=== PATIENT | female | born 1940 | race Caucasian/White ===

== ENCOUNTER 2018-05-26 15:32 | Emergency (ER) | payer MEDICARE, MEDICAID ==
[~2018-05-26] VITALS: Ht 162.6 cm; Wt 65.0 kg
[2018-05-26] MEDS ORDERED: ondansetron/PF 4mg/2ml inj IV ONE (15:40)
[2018-05-26] MEDS ORDERED: normal saline 1000ML IV soln IV ONE (15:40)
[2018-05-26 16:13] LABS: BASOPHILS % (AUTO) 0.1 % (0-1); EOSINOPHILS # (AUTO) 0.1 X10'3 (0-0.9); EOSINOPHILS % (AUTO) 1.4 % (0-6); HEMATOCRIT 45.1 % (35.0-45.0); HEMOGLOBIN 14.7 g/dl (12.0-16.0); LYMPHOCYTES # (AUTO) 1.8 X10'3 (1.1-4.8); LYMPHOCYTES % (AUTO) 26.3 % (21-51); MEAN CORPUSCULAR HEMOGLOBIN 28.9 PG (27.0-31.0); MEAN CORPUSCULAR HGB CONC 32.7 % (33.0-36.5); MEAN CORPUSCULAR VOLUME 88.3 FL (78-98); MEAN PLATELET VOLUME 7.9 FL (7.4-10.4); MONOCYTES # (AUTO) 0.6 X10'3 (0-0.9); MONOCYTES % (AUTO) 8.7 % (2-12); NEUTROPHILS # (AUTO) 4.3 X10'3 (1.8-7.7); NEUTROPHILS % (AUTO) 63.5 % (42-75); PLATELET COUNT 251 X10'3 (140-440); RED CELL DISTRIBUTION WIDTH 13.9 % (11.5-14.5); WHITE BLOOD COUNT 6.8 X10'3 (4.5-11.0)
[2018-05-26 16:23] LABS: ALANINE AMINOTRANSFERASE 28 U/L (12-78); ALBUMIN 4.3 G/DL (3.4-5.0); ALKALINE PHOSPHATASE 80 IU/L (46-116); ANION GAP 13 (8-16); ASPARTATE AMINO TRANSFERASE 19 U/L (10-37); BILIRUBIN,TOTAL 0.8 MG/DL (0.1-1.0); BLOOD UREA NITROGEN 19 MG/DL (7-18); BUN/CREATININE RATIO 15.8 (6.6-38.0); CALCIUM 9.3 MG/DL (8.5-10.1); CHLORIDE 103 MMOL/L (99-107); GLUCOSE 128 MG/DL (70-104); POTASSIUM 3.4 MMOL/L (3.5-5.1); SODIUM 139 MMOL/L (135-145); TOTAL PROTEIN 8.4 G/DL (6.4-8.2); eGFR 44 ML/MIN
[2018-05-26 16:27] LABS: CLARITY,URINE CLOUDY (Clear); COLOR,URINE YELLOW (Yellow); GLUCOSE, URINE NEGATIVE (Neg); KETONES,URINE NEGATIVE (Neg); LEUKOCYTE ESTERASE ,URINE NEGATIVE (Neg); NITRITES, URINE NEGATIVE (Neg); OCCULT BLOOD,URINE SMALL (Neg); PROTEIN,URINE >=300 mg/dl (Neg); UA COLLECTION TYPE CLN CATCH MIDSTREAM
[2018-05-26 16:36] LABS: BACTERIA,URINE 1+ /HPF (Neg); SQUAMOUS EPITHELIAL CELL,UR FEW /LPF (FEW)
[2018-05-26] MEDS ORDERED: SULF1TAB49 PO (16:41)
[2018-05-26] MEDS ORDERED: ONDA4TAB6 PO (16:41)
[2018-05-26 17:25] VITALS: BP 130/65
== END 2018-05-26 17:28 | disposition home or self-care (01) ==
LOC: ER 15:33
DX: N39.0 Urinary tract infection, site not specified (principal); E86.0 Dehydration; E87.6 Hypokalemia; R11.2 Nausea with vomiting, unspecified; Z79.899 Other long term (current) drug therapy
CPT/HCPCS: 36415; 71045; 80053; 81001; 83605; 85025; 87040; 87088; 87502; 87503; 93005; 96361; 96374; 99284; J2405; J7030

== ENCOUNTER 2020-11-24 08:44 | Inpatient (IN) | payer MEDICARE, MEDICAID ==
[~2020-11-24] VITALS: Ht 162.6 cm; Wt 68.8 kg
[~2020-11-24 08:44] MED LIST: ONDA4TAB6 PO
[2020-11-24 09:08] LABS: BASOPHILS # (AUTO) 0.1 X10'3 (0-0.2); BASOPHILS % (AUTO) 0.6 % (0-1); EOSINOPHILS # (AUTO) 0.7 X10'3 (0-0.9); EOSINOPHILS % (AUTO) 6.1 % (0-6); HEMATOCRIT 37.5 % (35.0-45.0); HEMOGLOBIN 12.8 g/dl (12.0-16.0); LYMPHOCYTES # (AUTO) 1.6 X10'3 (1.1-4.8); LYMPHOCYTES % (AUTO) 14.5 % (21-51); MEAN CORPUSCULAR HEMOGLOBIN 29.9 PG (27.0-31.0); MEAN CORPUSCULAR VOLUME 87.9 FL (78-98); MEAN PLATELET VOLUME 7.2 FL (7.4-10.4); MONOCYTES # (AUTO) 0.8 X10'3 (0-0.9); MONOCYTES % (AUTO) 7.8 % (2-12); NEUTROPHILS # (AUTO) 7.6 X10'3 (1.8-7.7); PLATELET COUNT 368 X10'3 (140-440); RED BLOOD COUNT 4.26 X10'6 (4.20-5.60); RED CELL DISTRIBUTION WIDTH 13.3 % (11.5-14.5); WHITE BLOOD COUNT 10.7 X10'3 (4.5-11.0)
[2020-11-24 09:24] LABS: ALANINE AMINOTRANSFERASE 43 U/L (12-78); ALBUMIN 3.1 G/DL (3.4-5.0); ALBUMIN/GLOBULIN RATIO 0.7 (1.1-1.5); ALKALINE PHOSPHATASE 103 IU/L (46-116); ANION GAP 10 (8-16); ASPARTATE AMINO TRANSFERASE 35 U/L (10-37); BILIRUBIN,TOTAL 0.6 MG/DL (0.1-1.0); BLOOD UREA NITROGEN 19 MG/DL (7-18); BUN/CREATININE RATIO 15.7 (6.6-38.0); CALCIUM 9.3 MG/DL (8.5-10.1); CHLORIDE 106 MMOL/L (99-107); CREATININE 1.21 MG/DL (0.40-0.90); GLUCOSE 161 MG/DL (70-104); POTASSIUM 3.3 MMOL/L (3.5-5.1); SODIUM 139 MMOL/L (135-145); TOTAL CARBON DIOXIDE 22.9 MMOL/L (24-32); TOTAL PROTEIN 7.8 G/DL (6.4-8.2); eGFR 43 ML/MIN
[2020-11-24] MEDS ORDERED: DOXYCYCLINE 100MG CAPSULE PO STA (09:41)
[2020-11-24] MEDS ORDERED: dexamethasone sod phosphate 10mg/ml inj IV STA (09:41)
[2020-11-24] MEDS ORDERED: ipratropium/albuterol 3ml nebule NEB ONE (09:45)
[2020-11-24] MEDS ORDERED: CefTRIAXone 2gm/D5W 50ml BAG 50 ML IV ONE (09:45)
[2020-11-24] MEDS ORDERED: acetaminophen 325mg tablet PO ONE (09:55)
[2020-11-24] MEDS ORDERED: acetaminophen 325mg tablet PO PRN (11:50)
[2020-11-24] MEDS ORDERED: mag hydrox/Alum hydrox/simeth 30ml oral suspension PO PRN (11:50)
[2020-11-24] MEDS ORDERED: normal saline 1000ml 1,000 ML IV SCH (11:50)
[2020-11-24] MEDS ORDERED: ondansetron/PF 4mg/2ml inj IV PRN (11:50)
[2020-11-24] MEDS ORDERED: potassium Cl 40MEQ/1/2NS 520ml 520 ML IV PRN ×2 (11:50)
[2020-11-24] MEDS ORDERED: potassium Cl 20 mEq SR tablet PO PRN (11:50)
[2020-11-24] MEDS ORDERED: magnesium hydroxide 30ml (MOM) UD suspension PO PRN (11:50)
[2020-11-24] MEDS ORDERED: ROSU40TA22 PO (12:01)
[2020-11-24] MEDS ORDERED: LEVO75TA7 PO (12:01)
[2020-11-24] MEDS ORDERED: IBUP-1986 PO (12:01)
[2020-11-24] MEDS ORDERED: TRAM50TA2 PO (12:01)
[2020-11-24 12:30] LABS: HEMOGLOBIN A1C 6.4 % (4.5-6.2)
--- NOTE | 2020-11-24 13:21 | NUR ---
patient ate 100% of meal
[2020-11-24] MEDS: potassium Cl 20 mEq SR tablet PO PRN ×3 (13:33→21:33)
[2020-11-24 14:00] VITALS: BP 120/60
[2020-11-24 15:00] VITALS: BP 117/60
[2020-11-24] MEDS: methylPREDNISolone sod succ 125mg/2ml vial IV SCH ×2 (15:35→23:10)
[2020-11-24] MEDS: traMADol 50MG tablet PO PRN (17:46)
[2020-11-24 18:00] VITALS: BP 138/60
--- NOTE | 2020-11-24 18:10 | NUR ---
Problems reprioritized. Patient report given, questions answered & plan of care reviewed with Etelvina RN at bedside.
--- NOTE | 2020-11-24 18:15 | NUR ---
Patient in room PCU 3016K. I have received report from Nay VIEIRA at bedside and had the opportunity to ask questions and assume patient care.
[2020-11-24] MEDS: docusate sod 100mg capsule PO SCH (19:05)
[2020-11-24] MEDS: lactobacillus rhamnosus 10,000 MMU CELLS/CAPSULE PO SCH (19:05)
[2020-11-24] MEDS: K and/or MAG REPLACEMENT MC SCH (20:00)
[2020-11-24 22:00] VITALS: BP 144/69
[2020-11-25 02:00] VITALS: BP 135/50
[2020-11-25] MEDS: HYDROcodone/acetaminophen 5mg/325mg tablet PO PRN ×2 (03:13→14:18)
--- NOTE | 2020-11-25 06:13 | NUR ---
Problems reprioritized. Patient report given, questions answered & plan of care reviewed with Nay VIEIRA at bedside.
--- NOTE | 2020-11-25 06:27 | NUR ---
Patient in room PCU 3015. I have received report from Etelvina VIEIRA at bedside and had the opportunity to ask questions and assume patient care.
[2020-11-25 06:58] LABS: BASOPHILS % (AUTO) 0 % (0-1); EOSINOPHILS % (AUTO) 0 % (0-6); HEMATOCRIT 37.6 % (35.0-45.0); HEMOGLOBIN 12.4 g/dl (12.0-16.0); LYMPHOCYTES # (AUTO) 1.2 X10'3 (1.1-4.8); LYMPHOCYTES % (AUTO) 7.2 % (21-51); MEAN CORPUSCULAR HEMOGLOBIN 29.1 PG (27.0-31.0); MEAN CORPUSCULAR VOLUME 88.1 FL (78-98); MEAN PLATELET VOLUME 7.3 FL (7.4-10.4); MONOCYTES # (AUTO) 0.6 X10'3 (0-0.9); MONOCYTES % (AUTO) 3.6 % (2-12); NEUTROPHILS # (AUTO) 14.7 X10'3 (1.8-7.7); NEUTROPHILS % (AUTO) 89.2 % (42-75); PLATELET COUNT 373 X10'3 (140-440); RED BLOOD COUNT 4.27 X10'6 (4.20-5.60); RED CELL DISTRIBUTION WIDTH 13.3 % (11.5-14.5); WHITE BLOOD COUNT 16.5 X10'3 (4.5-11.0)
[2020-11-25 07:00] VITALS: BP 135/65
[2020-11-25 07:27] LABS: ALANINE AMINOTRANSFERASE 45 U/L (12-78); ALBUMIN 2.9 G/DL (3.4-5.0); ALBUMIN/GLOBULIN RATIO 0.6 (1.1-1.5); ALKALINE PHOSPHATASE 91 IU/L (46-116); ANION GAP 11 (8-16); ASPARTATE AMINO TRANSFERASE 24 U/L (10-37); BILIRUBIN,TOTAL 0.3 MG/DL (0.1-1.0); BLOOD UREA NITROGEN 28 MG/DL (7-18); BUN/CREATININE RATIO 26.4 (6.6-38.0); CALCIUM 9.6 MG/DL (8.5-10.1); CHLORIDE 105 MMOL/L (99-107); CHOLESTEROL 142 MG/DL (0-200); CREATININE 1.06 MG/DL (0.40-0.90); GLUCOSE 168 MG/DL (70-104); HDL CHOLESTEROL 47 MG/DL (35-60); LDL CHOLESTEROL 79 MG/DL (50-100); MAGNESIUM 2.3 MG/DL (1.5-2.4); POTASSIUM 4.4 MMOL/L (3.5-5.1); SODIUM 137 MMOL/L (135-145); TOTAL CARBON DIOXIDE 20.6 MMOL/L (24-32); TOTAL PROTEIN 7.9 G/DL (6.4-8.2); TRIGLYCERIDES 68 MG/DL (20-135); eGFR 50 ML/MIN
[2020-11-25] MEDS: CefTRIAXone/D5W-Rocephin 1gm 50 ML IV SCH (07:40)
[2020-11-25] MEDS: K and/or MAG REPLACEMENT MC SCH ×2 (07:40→20:00)
[2020-11-25] MEDS: methylPREDNISolone sod succ 125mg/2ml vial IV SCH ×2 (07:44→16:03)
[2020-11-25] MEDS: lactobacillus rhamnosus 10,000 MMU CELLS/CAPSULE PO SCH ×2 (07:45→19:39)
[2020-11-25] MEDS: atorvastatin 20mg tablet PO SCH (07:45)
[2020-11-25] MEDS: levoTHYROXINE 75mcg tablet PO SCH (07:45)
[2020-11-25] MEDS: enoxaparin 40mg/0.4ml syringe SUBCUT SCH (07:45)
[2020-11-25] MEDS: docusate sod 100mg capsule PO SCH ×2 (07:45→19:39)
[2020-11-25] MEDS: traMADol 50MG tablet PO PRN ×2 (07:46→21:52)
[2020-11-25 11:00] VITALS: BP 134/62
[2020-11-25] MEDS ORDERED: acetaminophen 325mg tablet PO PRN (13:20)
[2020-11-25 15:00] VITALS: BP 134/60
[2020-11-25 18:00] VITALS: BP 148/69
--- NOTE | 2020-11-25 18:20 | NUR ---
Patient in room PCU 3015. I have received report from Nay VIEIRA and had the opportunity to ask questions and assume patient care.
--- NOTE | 2020-11-25 18:25 | NUR ---
Problems reprioritized. Patient report given, questions answered & plan of care reviewed with [place] VIEIRA at bedside.
--- NOTE | 2020-11-25 21:50 | NUR ---
Patient requested to skip 0200 VS so she can sleep.
[2020-11-25 22:00] VITALS: BP 138/67
[2020-11-26] MEDS: methylPREDNISolone sod succ 125mg/2ml vial IV SCH ×2 (00:52→09:01)
--- NOTE | 2020-11-26 05:44 | NUR ---
Patient slept throughout night, is ambulatory to restroom ad sourav. She declined milk of magnesia in hopes that she will be discharged 11/26 and can have a bm at home.
--- NOTE | 2020-11-26 06:20 | NUR ---
Problems reprioritized. Patient report given, questions answered & plan of care reviewed with Shaq VIEIRA.
[2020-11-26 06:46] LABS: BASOPHILS % (AUTO) 0 % (0-1); EOSINOPHILS % (AUTO) 0 % (0-6); HEMATOCRIT 37.7 % (35.0-45.0); HEMOGLOBIN 12.1 g/dl (12.0-16.0); LYMPHOCYTES # (AUTO) 1.2 X10'3 (1.1-4.8); LYMPHOCYTES % (AUTO) 4.8 % (21-51); MEAN CORPUSCULAR HEMOGLOBIN 28.8 PG (27.0-31.0); MEAN CORPUSCULAR HGB CONC 32.2 g/dL (33.0-36.5); MEAN CORPUSCULAR VOLUME 89.3 FL (78-98); MEAN PLATELET VOLUME 7.3 FL (7.4-10.4); MONOCYTES # (AUTO) 0.9 X10'3 (0-0.9); MONOCYTES % (AUTO) 3.7 % (2-12); NEUTROPHILS # (AUTO) 22.4 X10'3 (1.8-7.7); NEUTROPHILS % (AUTO) 91.5 % (42-75); PLATELET COUNT 384 X10'3 (140-440); RED BLOOD COUNT 4.22 X10'6 (4.20-5.60); RED CELL DISTRIBUTION WIDTH 13.6 % (11.5-14.5); WHITE BLOOD COUNT 24.5 X10'3 (4.5-11.0)
[2020-11-26 07:00] VITALS: BP 153/70
[2020-11-26 07:04] LABS: ALANINE AMINOTRANSFERASE 78 U/L (12-78); ALBUMIN/GLOBULIN RATIO 0.7 (1.1-1.5); ALKALINE PHOSPHATASE 104 IU/L (46-116); ANION GAP 13 (8-16); ASPARTATE AMINO TRANSFERASE 49 U/L (10-37); BILIRUBIN,TOTAL 0.3 MG/DL (0.1-1.0); BLOOD UREA NITROGEN 30 MG/DL (7-18); BUN/CREATININE RATIO 29.4 (6.6-38.0); CALCIUM 9.3 MG/DL (8.5-10.1); CHLORIDE 107 MMOL/L (99-107); CREATININE 1.02 MG/DL (0.40-0.90); GLUCOSE 152 MG/DL (70-104); MAGNESIUM 2.5 MG/DL (1.5-2.4); POTASSIUM 4.2 MMOL/L (3.5-5.1); SODIUM 141 MMOL/L (135-145); TOTAL CARBON DIOXIDE 20.6 MMOL/L (24-32); TOTAL PROTEIN 7.5 G/DL (6.4-8.2); eGFR 52 ML/MIN
[2020-11-26] MEDS: CefTRIAXone/D5W-Rocephin 1gm 50 ML IV SCH (09:00)
[2020-11-26] MEDS: atorvastatin 20mg tablet PO SCH (09:01)
[2020-11-26] MEDS: levoTHYROXINE 75mcg tablet PO SCH (09:01)
[2020-11-26] MEDS: lactobacillus rhamnosus 10,000 MMU CELLS/CAPSULE PO SCH (09:01)
[2020-11-26] MEDS: docusate sod 100mg capsule PO SCH (09:01)
[2020-11-26] MEDS: enoxaparin 40mg/0.4ml syringe SUBCUT SCH (09:02)
--- NOTE | 2020-11-26 10:21 | NUR ---
PAGER ID: [phone] MESSAGE: [phone] Brant, sravani- noted WBC went up to 24.5 this AM from 16.5. She says she is being discharged. Libby [phone] I Spoke to MD Kimball after paging - she is aware of wbc and says it's d/t steroids.
[2020-11-26] MEDS ORDERED: AZIT500T9 PO (10:34)
[2020-11-26] MEDS ORDERED: METH4TAB81 PO (10:34)
== END 2020-11-26 11:50 | disposition home or self-care (01) | DRG 195 ==
LOC: ER 08:45 → ED HOLD 11:47 → PCU 3S 14:31
PROVIDERS: ADMIT Internal Medicine; ATTEND Internal Medicine
DX: J18.9 Pneumonia, unspecified organism (principal); E03.9 Hypothyroidism, unspecified; E78.5 Hyperlipidemia, unspecified; N18.9 Chronic kidney disease, unspecified; G89.29 Other chronic pain; E78.00 Pure hypercholesterolemia, unspecified; E87.6 Hypokalemia; R51.9 Headache, unspecified; M54.9 Dorsalgia, unspecified; M54.5 Low back pain; D72.829 Elevated white blood cell count, unspecified; T38.0X5A Adverse effect of glucocorticoids and synthetic analogues, initial encounter; R06.03 Acute respiratory distress; Z87.891 Personal history of nicotine dependence; Z88.8 Allergy status to other drugs, medicaments and biological substances; Z79.899 Other long term (current) drug therapy
CPT/HCPCS: 36415; 71045; 80053; 80061; 83036; 83605; 83735; 83880; 84484; 85025; 87040; 87081; 93005; 93306; 94640; 94760; 99285; G0378; J0696; J1100; J1650; J2930; J7030

== ENCOUNTER 2022-03-22 07:00 | Emergency (ER) | payer MEDICARE, MEDICAID ==
[~2022-03-22 07:00] MED LIST changes: +AZIT500T9 PO; +LEVO75TA7 PO; +METH4TAB81 PO; -ONDA4TAB6 PO; +ROSU40TA22 PO; +TRAM50TA2 PO
== END 2022-03-22 08:12 | disposition left against medical advice (07) ==
LOC: ER 07:00
DX: J02.0 Streptococcal pharyngitis (principal); Z53.21 Procedure and treatment not carried out due to patient leaving prior to being seen by health care provider